=== PATIENT | male | born 1980 | race African-American/Black ===

== ENCOUNTER → 2018-08-03 | Outpatient (CLI) | payer SELFPAY | LOC: M OUTALCOH 10:18 | PROVIDERS: ATTEND Psychiatry & Neurology Psychiatry | DX: Z03.89 Encounter for observation for other suspected diseases and conditions ruled out (principal) ==

== ENCOUNTER 2018-08-09 18:44 | Emergency (ER) | payer MEDICAID, SELFPAY ==
[~2018-08-09] VITALS: Ht 185.4 cm; Wt 81.8 kg
--- NOTE | 2018-08-09 20:53 | REPVR ---
EXAM: US Duplex Left Lower Extremity Veins, Limited EXAM DATE/TIME: 08/09/2018 8:37 PM CLINICAL HISTORY: 37 years old, male; Pain; Leg, lower; Left; Additional info: Left posterior knee pain TECHNIQUE: Real-time Duplex ultrasound of the Left Lower Extremity with 2-D foley scale, color Doppler flow and spectral waveform analysis. Limited exam focused on the left lower extremity veins. COMPARISON: No relevant prior studies available. FINDINGS: Left deep veins: Unremarkable. The common femoral, femoral, proximal profunda femoral and popliteal veins are patent without thrombus. Normal Doppler waveforms. Normal compressibility and/or augmentation response. Left superficial veins: Unremarkable. Saphenofemoral junction is patent without thrombus. Soft tissues: Unremarkable. IMPRESSION: No acute findings. No evidence of deep vein thrombosis. Electronically signed by: Jonn Charles On 08/09/2018 20:53:03 PM
[2018-08-09] MEDS ORDERED: NAPROXEN 250 MG TAB PO ONE (21:00)
[2018-08-09] MEDS ORDERED: NAPR-50 PO (21:01)
[2018-08-09 21:05] VITALS: BP 143/75
== END 2018-08-09 21:17 | disposition home or self-care (01) ==
LOC: M ED 18:44
DX: M79.662 Pain in left lower leg (principal); Z72.0 Tobacco use

== ENCOUNTER 2018-08-10 10:03 | Outpatient (RCR) | payer MEDICAID, SELFPAY ==
[~2018-08-10 10:03] MED LIST: NAPR-50 PO
== END 2018-09-03 ==
LOC: M OUTALCOH 10:03
PROVIDERS: ATTEND Psychiatry & Neurology Psychiatry
DX: Z03.89 Encounter for observation for other suspected diseases and conditions ruled out (principal)